=== PATIENT | female | born 1945 | race Asian ===

== ENCOUNTER → 2016-09-12 | Outpatient (CLI) | payer BC ==
[~2016-09-12] MED LIST: ALLOPURINOL100 M1 ORAL; BENAZEPRIL-HCT1 EAC1 PO; GLIPIZIDE-METF1 EACH PO; GLUCOPHAGE850 MG PO; METFORMIN HCL1000 M1 ORAL; SIMVASTATIN10 MG PO; VITAMIN D1000 UNI1 ORAL
--- NOTE | 2016-09-12 15:32 | Diagnostic Imaging Report ---
Indication: SCREEN Technique: Bilateral Craniocaudal and mediolateral oblique views were obtained. Comparison: 03/13/2010 Findings: Breasts demonstrate scattered fibroglandular densities. No parenchymal asymmetry nor architectural distortion. There are benign calcifications bilaterally. No dominant masses nor suspicious clustered microcalcifications. No skin thickening nor nipple retraction. No axillary adenopathy. No significant interim change. Impression: No mammographic evidence of malignancy. Routine annual rescreening recommended. BI-RADS category 2-benign. Breast density BI-RADS type B.
== END | disposition home or self-care (01) ==
LOC: MAMMO 09:30
DX: Z12.31 Encounter for screening mammogram for malignant neoplasm of breast (principal)
CPT/HCPCS: 77067